=== PATIENT | male | born 1960 | race Caucasian/White ===

== ENCOUNTER → 2023-01-22 | Day surgery (SDC) | payer OTHER ==
[~2023-01-22] MED LIST: EPHEDRINE SULFATE INJ 50 MG/ML VIAL ONE; FENTANYL CITRATE/PF 100MCG/2 ML INJ ONE; LIDOCAINE HCL 2% LOCAL INJ 5 ML SDV VIAL INJ ONE; METOCLOPRAMIDE HCL 10 MG/2ML VIAL ONE; PROPOFOL IV EMULSION 50 ML IV ONE
[2023-01-22 15:10] VITALS: BP 106/73; PULSE 64; RESP 16; O2SAT 97
== END | disposition home or self-care (01) ==
LOC: OR 11:13
PROVIDERS: ATTEND Internal Medicine Gastroenterology
DX: Z12.11 Encounter for screening for malignant neoplasm of colon (principal); D12.5 Benign neoplasm of sigmoid colon; Q27.39 Arteriovenous malformation, other site; K64.8 Other hemorrhoids; Z71.3 Dietary counseling and surveillance; Z01.810 Encounter for preprocedural cardiovascular examination; Z68.30 Body mass index [BMI] 30.0-30.9, adult; Z86.19 Personal history of other infectious and parasitic diseases
CPT/HCPCS: 45380; 45385; 93005; J2001; J2704; J2765; J3010; 45378